=== PATIENT | female | born 1965 | race Caucasian/White ===

== ENCOUNTER 2016-06-10 17:42 | Emergency (ER) | payer BC ==
[~2016-06-10] VITALS: Ht 154.9 cm; Wt 80.3 kg
[2016-06-10 18:58] LABS: HEMATOCRIT 35.6 % (36.0-46.0); MCH 23.2 PG (29.0-34.0); MCHC 30.3 G/DL (30.0-36.0); MCV 76.6 FL (83-99); MEAN PLAT.VOLUME 10.7 uM^3 (9.5-12.4); PLATELET COUNT 276 K/uL (156-360); RBC DIS.WIDTH-CV 16.8 % (11.8-14.6); RBC DIS.WIDTH-SD 45.1 % (39-53); RED BLOOD COUNT 4.65 M/uL (3.80-5.20); WHITE BLOOD COUNT 6.6 K/uL (4.1-10.2)
[2016-06-10 19:08] LABS: CHLORIDE 107 mEq/L (99-109); POTASSIUM 4.3 mEq/L (3.7-5.4); SODIUM 142 mEq/L (136-147)
[2016-06-10 19:09] LABS: GLUCOSE 112 mg/dL (70-99)
[2016-06-10 19:11] LABS: ANION GAP 9 MEQ/L (2-14)
[2016-06-10 19:13] LABS: GFR ESTIMATE (CALCULATED) > 59 mL/min/
[2016-06-10 19:14] LABS: UREA NITROGEN (BUN) 11 mg/dL (9-23)
[2016-06-10 19:18] LABS: TROP-I INTERPRETATION NEGATIVE; TROPONIN-I < 0.01 ng/mL (0.0-0.30)
[2016-06-10] MEDS ORDERED: PROMETHAZINE HC25 M1 PO (22:18)
[2016-06-10 23:02] VITALS: BP 92/45
== END 2016-06-10 23:03 | disposition home or self-care (01) ==
LOC: EME 17:42 → RME 17:42
DX: R51 Headache (principal); E78.5 Hyperlipidemia, unspecified; I10 Essential (primary) hypertension; I25.2 Old myocardial infarction; Z86.718 Personal history of other venous thrombosis and embolism; Z95.1 Presence of aortocoronary bypass graft; Z98.61 Coronary angioplasty status; Z87.891 Personal history of nicotine dependence
CPT/HCPCS: 70450; 71020; 80048; 84484; 85027; 93005; 99281; 99285; J2550; J8540